=== PATIENT | female | born 1990 | race Caucasian/White ===

== ENCOUNTER 2018-06-23 03:32 | Emergency (ER) | payer OTHER ==
[~2018-06-23] VITALS: Ht 165.1 cm; Wt 113.6 kg
[~2018-06-23 03:32] MED LIST: BIRTH CONTROL PILLS; CEPHALEXIN500 M1 PO; CLEOCIN HCL300 MG PO; INDERAL LA 60MG60 MG PO; LEVAQUIN 5500 MG/TA1 PO; PERCOCET 325 MG1 TA2 PO; PREDNISONE20 MG PO; PRILOSEC 20MG20 MG PO; ZOFRAN 4MG T4 MG/TAB PO; [UNRECOGNIZED DRUG - OTHER]
[2018-06-23 03:35] VITALS: TEMP 98.1
[2018-06-23 05:05] LABS: BASO % 0.5 % (0.0-2.0); EOS # 0.1 (0.0-0.7); EOS % 2.3 % (0-4.0); GRAN # 3.7 (1.4-6.5); GRAN % 59.5 % (42.2-75.2); HEMATOCRIT 38.5 % (37.0-47.0); HEMOGLOBIN 13.2 g/dl (12.5-16.0); LYMPH # 1.9 (1.2-3.4); LYMPH % 30.6 % (20.0-51.0); MEAN CELL VOLUME 92 fl (80.0-100.0); MEAN CORPUSCULAR HEMOGLOBIN 32 pg (27.0-31.0); MEAN CORPUSCULAR HGB CONC 34 g/dl (33.0-37.0); MEAN PLATELET VOLUME 9.4 fl (7.4-10.4); MONO # 0.4 (0.1-0.6); MONO % 6.6 % (1.7-9.3); PLATELET COUNT 216 K/mm3 (130-400); RED BLOOD COUNT 4.18 M/mm3 (4.10-5.30); REDCELL DISTRIBUTION WIDTH-CV 11.1 % (11.5-14.5)
[2018-06-23 05:14] LABS: ALANINE AMINOTRANSFERASE 30 U/L (9-52); ALBUMIN 4.3 gm/dL (3.5-5.0); ALKALINE PHOSPHATASE 47 U/L (50-136); ANION GAP 6 mmol/L (7-16); AST,SGOT 22 U/L (15-37); BILIRUBIN,TOTAL 0.7 mg/dL (0.0-1.0); BLOOD UREA NITROGEN 10 mg/dL (7-17); CALCIUM 9.1 mg/dL (8.4-10.2); CARBON DIOXIDE 28 mmol/L (22-30); CHLORIDE 107 mmol/L (98-107); CREATININE, serum 0.59 mg/dL (0.52-1.25); GLUCOSE 100 mg/dL (74-106); POTASSIUM 3.7 mmol/L (3.4-5.0); SODIUM 140 mmol/L (137-145); TOTAL PROTEIN 7.4 gm/dL (6.4-8.2)
[2018-06-23 05:43] LABS: TROPONIN-I < 0.012 ng/mL (0.000-0.034)
[2018-06-23] MEDS ORDERED: PREDNISONE20 MG PO (05:57)
[2018-06-23 06:07] VITALS: BP 122/66; PULSE 72
== END 2018-06-23 06:08 | disposition home or self-care (01) ==
LOC: COL.ER 03:32
PROVIDERS: Emergency Medicine
DX: J40 Bronchitis, not specified as acute or chronic (principal)
CPT/HCPCS: J7512

== ENCOUNTER 2019-07-02 06:05 | Emergency (ER) | payer OTHER ==
[~2019-07-02] VITALS: Ht 165.1 cm; Wt 118.2 kg
[2019-07-02 06:17] VITALS: TEMP 97.2
[2019-07-02] MEDS ORDERED: PRILOSEC 20MG20 MG PO (06:41)
[2019-07-02 06:46] LABS: COLLECTION METHOD CLEAN CATCH
[2019-07-02 07:01] LABS: MUCOUS Present /lpf; PH 5 (5-8); URINE APPEARANCE Cloudy; URINE BACTERIA Rare /hpf; URINE BILIRUBIN Negative (NEGATIVE); URINE BLOOD Negative (NEGATIVE); URINE COLOR Yellow; URINE GLUCOSE Negative (NEGATIVE); URINE KETONE Negative (NEGATIVE); URINE LEUKOCYTE ESTERASE Negative (NEGATIVE); URINE NITRATE Negative (NEGATIVE); URINE PROTEIN(semi-quant) Negative (NEGATIVE); URINE UROBILINOGEN Negative (NEGATIVE)
[2019-07-02] MEDS ORDERED: ZOFRAN ODT8 MG PO (07:22)
[2019-07-02] MEDS ORDERED: ANTIVERT 25MG25 MG PO (07:22)
[2019-07-02 07:51] LABS: BASO % 0.2 % (0.0-2.0); EOS # 0.1 (0.0-0.7); EOS % 0.9 % (0-4.0); GRAN # 6.5 (1.4-6.5); GRAN % 73.6 % (42.2-75.2); HEMATOCRIT 39.9 % (37.0-47.0); HEMOGLOBIN 13.7 g/dl (12.5-16.0); LYMPH # 1.6 (1.2-3.4); LYMPH % 18.3 % (20.0-51.0); MEAN CELL VOLUME 91 fl (80.0-100.0); MEAN CORPUSCULAR HEMOGLOBIN 31 pg (27.0-31.0); MEAN CORPUSCULAR HGB CONC 34 g/dl (33.0-37.0); MONO # 0.5 (0.1-0.6); MONO % 5.9 % (1.7-9.3); PLATELET COUNT 227 K/mm3 (130-400); RED BLOOD COUNT 4.39 M/mm3 (4.10-5.30); REDCELL DISTRIBUTION WIDTH-CV 11.2 % (11.5-14.5)
[2019-07-02 08:01] LABS: ALANINE AMINOTRANSFERASE 24 U/L (9-52); ALBUMIN 4.7 gm/dL (3.5-5.0); ALKALINE PHOSPHATASE 53 U/L (50-136); ANION GAP 12 mmol/L (7-16); AST,SGOT 20 U/L (15-37); BILIRUBIN,TOTAL 0.4 mg/dL (0.0-1.0); BLOOD UREA NITROGEN 9 mg/dL (7-17); CALCIUM 9.3 mg/dL (8.4-10.2); CARBON DIOXIDE 24 mmol/L (22-30); CHLORIDE 106 mmol/L (98-107); CREATININE, serum 0.54 (0.52-1.25); GLUCOSE 98 mg/dL (74-106); LIPASE 68 U/L (23-300); POTASSIUM 4.1 mmol/L (3.4-5.0); SODIUM 142 mmol/L (137-145); TOTAL PROTEIN 7.9 gm/dL (6.4-8.2)
[2019-07-02 08:12] LABS: TROPONIN-I < 0.012 ng/mL (0.000-0.035)
[2019-07-02 09:35] VITALS: BP 115/57; PULSE 75
== END 2019-07-02 09:35 | disposition home or self-care (01) ==
LOC: COL.ER 06:05
PROVIDERS: Emergency Medicine
DX: R42 Dizziness and giddiness (principal); Z90.49 Acquired absence of other specified parts of digestive tract
CPT/HCPCS: J2405; J7030

== ENCOUNTER → 2020-06-18 | Outpatient (CLI) | payer OTHER ==
[~2020-06-18] MED LIST changes: +ANTIVERT 25MG25 MG PO; +IRON TABLETS325 MG PO; +MOTRIN 800800 MG/TAB PO; +PRENATAL 19 CH1 EACH PO; +SENNA-S 50 MG-81 TAB PO; +ZOFRAN ODT8 MG PO
== END | disposition still patient (30) ==
LOC: ZCOL.LAB
DX: Z20.828 Contact with and (suspected) exposure to other viral communicable diseases (principal)

== ENCOUNTER 2020-06-22 16:43 | Inpatient (IN) | payer OTHER ==
[~2020-06-22] VITALS: Ht 165.1 cm; Wt 124.1 kg
[~2020-06-22 16:43] MED LIST changes: -IRON TABLETS325 MG PO; -MOTRIN 800800 MG/TAB PO; -PRENATAL 19 CH1 EACH PO; -SENNA-S 50 MG-81 TAB PO
--- NOTE | 2020-06-22 19:00 | NUR ---
Pt ambulatory to [facility] 6 with spouse for scheduled cytotec induction. Clean gown on. EFM and TOCO explained and applied. Pt denies contractions, leaking of fluids or vaginal bleeding. Reports good movement. Plan of care explained to pt and spouse. Questions answered. VS taken. 1908: called and new order received. 1924: IV and labs obtained via IV site. LR bolus infusing. Consents and assessment completed. 2029: Cytotec explained and placed by Val TURCIOS. Plan of care explained and questions answered. 2034: called and updated. New orders received. See physican notification.
[2020-06-22 19:30] VITALS: BP 133/72; PULSE 93; TEMP 98.5
[2020-06-22] MEDS ORDERED: PRENATAL 19 CH1 EACH PO (19:45)
[2020-06-22 20:00] VITALS: BP 153/81; PULSE 95
[2020-06-22 20:28] LABS: BASO % 0.1 % (0.0-2.0); EOS # 0.1 (0.0-0.7); EOS % 1.6 % (0-4.0); GRAN # 4.6 (1.4-6.5); HEMOGLOBIN 10.8 g/dl (12.5-16.0); LYMPH # 1.4 (1.2-3.4); MEAN CELL VOLUME 87 fl (80.0-100.0); MEAN CORPUSCULAR HEMOGLOBIN 28 pg (27.0-31.0); MEAN CORPUSCULAR HGB CONC 32 g/dl (33.0-37.0); MONO # 0.6 (0.1-0.6); MONO % 8.4 % (1.7-9.3); PLATELET COUNT 199 K/mm3 (130-400); RED BLOOD COUNT 3.81 M/mm3 (4.10-5.30); REDCELL DISTRIBUTION WIDTH-CV 13.7 % (11.5-14.5)
[2020-06-22 20:30] VITALS: BP 122/60; PULSE 81
[2020-06-22 20:30] LABS: HEMATOCRIT 33.3 % (37.0-47.0)
[2020-06-22 21:00] VITALS: BP 129/60; PULSE 80
[2020-06-22 21:30] VITALS: BP 125/58; PULSE 79
[2020-06-22 22:00] VITALS: BP 134/64; PULSE 78
[2020-06-22 22:04] LABS: ALBUMIN 3.4 gm/dL (3.5-5.0); BILIRUBIN,TOTAL 0.2 mg/dL (0.0-1.0); CALCIUM 8.8 mg/dL (8.4-10.2); CREATININE, serum 0.47 (0.52-1.25); POTASSIUM 4.1 mmol/L (3.4-5.0); TOTAL PROTEIN 6.6 gm/dL (6.4-8.2)
[2020-06-22 22:52] LABS: COLLECTION METHOD CLEAN CATCH
[2020-06-22 22:59] LABS: PH 7 (5-8); SQUAMOUS EPITHELIAL 0-2 /hpf; URINE APPEARANCE Clear; URINE BACTERIA Rare /hpf; URINE BILIRUBIN Negative (NEGATIVE); URINE BLOOD Negative (NEGATIVE); URINE COLOR Yellow; URINE GLUCOSE Negative (NEGATIVE); URINE KETONE Negative (NEGATIVE); URINE LEUKOCYTE ESTERASE Trace (NEGATIVE); URINE NITRATE Negative (NEGATIVE); URINE PROTEIN(semi-quant) Negative (NEGATIVE); URINE RBC 0-2 /hpf; URINE UROBILINOGEN Negative (NEGATIVE); URINE WBC 0-2 /hpf
[2020-06-23] VITALS (48 sets, daily range): BP systolic 89–142; BP diastolic 47–68; PULSE 66–105; TEMP 98–98.9
--- NOTE | 2020-06-23 01:15 | NUR ---
SVE UNCHANGED. PITOCIN EXPLAINED AND QUESTIONS ANSWERED. PITOCIN STARTED AT 2MUS/HR PER ORDERS.
--- NOTE | 2020-06-23 08:08 | NUR ---
Dr. Berman at bedside. SVE per provider closed/high. Discusses options with pt. Pt agrees to primary c/s. 0811-Pitocin shut off. Pt prepped for c/s. No questions or concerns at this time.
[2020-06-24 05:15] VITALS: BP 102/57; PULSE 90; TEMP 98.1
[2020-06-24 06:30] VITALS: BP 97/42; PULSE 85
--- NOTE | 2020-06-24 06:30 | NUR ---
0630- Pt complains of being lightheaded and dizzy just laying in bed. VSS. Pt encouraged to drink more water and jello given because she said she didnt eat anything with medication administration at 0519 dose. 0640- Pt noted walking out to desk. Pt appears steady on feet, continues to complain of slight dizziness. Pt encouraged to return to room.
[2020-06-24 07:37] LABS: BASO % 0.2 % (0.0-2.0); EOS # 0.1 (0.0-0.7); EOS % 1.3 % (0-4.0); GRAN # 5.8 (1.4-6.5); GRAN % 69.4 % (42.2-75.2); HEMATOCRIT 27.2 % (37.0-47.0); HEMOGLOBIN 8.6 g/dl (12.5-16.0); LYMPH # 1.5 (1.2-3.4); LYMPH % 18.2 % (20.0-51.0); MEAN CELL VOLUME 90 fl (80.0-100.0); MEAN CORPUSCULAR HEMOGLOBIN 28 pg (27.0-31.0); MEAN CORPUSCULAR HGB CONC 32 g/dl (33.0-37.0); MEAN PLATELET VOLUME 9.8 fl (7.4-10.4); MONO # 0.9 (0.1-0.6); MONO % 10.3 % (1.7-9.3); PLATELET COUNT 143 K/mm3 (130-400); RED BLOOD COUNT 3.02 M/mm3 (4.10-5.30); REDCELL DISTRIBUTION WIDTH-CV 14.1 % (11.5-14.5)
[2020-06-24] MEDS ORDERED: MOTRIN 800800 MG/TAB PO (14:31)
[2020-06-24] MEDS ORDERED: PERCOCET 325 MG1 TA2 PO (14:31)
[2020-06-24 16:45] VITALS: BP 125/56; PULSE 101; TEMP 98.8
[2020-06-25 08:15] VITALS: BP 119/52; PULSE 87; TEMP 98.3
== END 2020-06-25 13:30 | disposition home or self-care (01) | DRG 788 ==
LOC: OB 16:43 → LDR 19:08 → OB 06-23 09:37
PROVIDERS: Obstetrics & Gynecology; ADMIT Obstetrics & Gynecology
PROC: 10D00Z1 Extraction of Products of Conception, Low, Open Approach (ICD-10-PCS; principal; 2020-06-22)
DX: O48.0 Post-term pregnancy (principal); Z37.0 Single live birth; Z3A.40 40 weeks gestation of pregnancy; O99.214 Obesity complicating childbirth; E66.9 Obesity, unspecified; O99.02 Anemia complicating childbirth; D64.9 Anemia, unspecified
CPT/HCPCS: J0690; J1885; J2250; J2405; J2590; J3010; J7120

== ENCOUNTER 2020-06-27 19:17 | Emergency (ER) | payer OTHER ==
[~2020-06-27] VITALS: Ht 165.1 cm; Wt 123.6 kg
[~2020-06-27 19:17] MED LIST changes: +MOTRIN 800800 MG/TAB PO; +PRENATAL 19 CH1 EACH PO
[2020-06-27 19:20] VITALS: TEMP 98.3
[2020-06-27 20:06] LABS: BASO % 0.2 % (0.0-2.0); EOS # 0.1 (0.0-0.7); EOS % 2.6 % (0-4.0); GRAN # 3.8 (1.4-6.5); GRAN % 69.9 % (42.2-75.2); LYMPH # 1.1 (1.2-3.4); LYMPH % 20.4 % (20.0-51.0); MEAN CELL VOLUME 89 fl (80.0-100.0); MEAN CORPUSCULAR HGB CONC 32 g/dl (33.0-37.0); MEAN PLATELET VOLUME 9.3 fl (7.4-10.4); MONO # 0.3 (0.1-0.6); MONO % 5.6 % (1.7-9.3); PLATELET COUNT 197 K/mm3 (130-400); RED BLOOD COUNT 2.97 M/mm3 (4.10-5.30); REDCELL DISTRIBUTION WIDTH-CV 13.5 % (11.5-14.5)
[2020-06-27 20:18] LABS: ALBUMIN 3.5 gm/dL (3.5-5.0); BILIRUBIN,TOTAL 0.4 mg/dL (0.0-1.0); CALCIUM 8.5 mg/dL (8.4-10.2); CREATININE, serum 0.53 (0.52-1.25); POTASSIUM 3.8 mmol/L (3.4-5.0); TOTAL PROTEIN 6.4 gm/dL (6.4-8.2)
[2020-06-27 20:22] LABS: HEMATOCRIT 26.3 % (37.0-47.0); HEMOGLOBIN 8.4 g/dl (12.5-16.0); MEAN CORPUSCULAR HEMOGLOBIN 28 pg (27.0-31.0)
[2020-06-27] MEDS ORDERED: SENNA-S 50 MG-81 TAB PO (20:32)
[2020-06-27] MEDS ORDERED: IRON TABLETS325 MG PO (20:32)
[2020-06-27 20:48] VITALS: BP 136/74; PULSE 68
== END 2020-06-27 23:15 | disposition home or self-care (01) ==
LOC: COL.ER 19:17
PROVIDERS: Emergency Medicine
DX: R53.83 Other fatigue (principal); D64.9 Anemia, unspecified
CPT/HCPCS: J7030